=== PATIENT | male | born 1985 | race African-American/Black ===

== ENCOUNTER 2018-04-26 21:02 | Inpatient (IN) | payer OTHER ==
[2018-04-26 23:22] VITALS: BMI 26.4
--- NOTE | 2018-04-27 00:23 | HP ---
CIWA Score - CIWA Score Nausea/Vomitin Muscle Tremors: 5 Anxiety: 5 Agitation: 4-Moderately Restless Paroxysmal Sweats: No Perspiration Orientation: 3-Disoriented Date>2 days Tacttile Disturbances: 3-Moderate Itch/Numb/Burn Auditory Disturbances: 0-None Visual Disturbances: 2-Mild Sensitivity Headache: 0-None Present CIWA-Ar Total Score: 25 Admission ROS S - [facility] Chief Complaint: c/o withdrawal sx's. seeking detox from alcohol Allergies/Adverse Reactions: Allergies Allergy/AdvReac Type Severity Reaction Status Date / Time No Known Allergies Allergy Verified 02/05/18 10:33 History of Present Illness: 32 Y.O. MALE WITH LONG HX/O ALCOHOLISM HERE FOR DETOX WITH C/O WITHDRAWAL SX'S. CIWA 25. HE IS KNOWN TO THIS PROGRAM. LAST ADMISSION ON 02/05/2018. REFERRED BY [facility] . DENIES ANY SIGNIFICANT CLEAN TIME. REPORTS WITHDRAWAL SEIZURES LAST EPISODE 2 DAYS AGO. HE IS SUPPOSE TO BE TAKING KEPPRA BUT HAS NOT TAKEN IT IN 2 WEEKS. DOES NOT RECALL HIS DOSE HE ALSO REPORTS RECENT I AND D OF R HIP 2/2 ABCESS. SITE IS HEALING WITH RED GRANULATING TISSUES NO DRAINAGE. REPORTS VISUAL HALLUCINATION WHEN WITHDRAWING. DENIES SOB, C.P, PAST/PRESENT SI/ HI PMHX- HTN, HX/O PE LEFT LUNG PSYCH- DENIES Exam Limitations: No Limitations - Ebola screening Have you traveled outside of the country in the last 21 days: No (N) Have you had contact with anyone from an Ebola affected area: No Have you been sick,other than usual withdrawal symptoms: No Do you have a fever: No - Review of Systems Constitutional: Chills, Loss of Appetite, Malaise, Night Sweats, Changes in sleep EENT: reports: No Symptoms Reported Respiratory: reports: Shortness of Breath Cardiac: reports: No Symptoms Reported GI: reports: Diarrhea, Nausea, Poor Appetite, Poor Fluid Intake, Abdominal cramping : reports: No Symptoms Reported Musculoskeletal: reports: No Symptoms Reported Integumentary: reports: Flushing, Other (R HIP SX WOUND) Neuro: reports: Headache, Seizure ( 2 DAYS AGO R/T WITHDRAWAL), Tremors Endocrine: reports: No Symptoms Reported Hematology: reports: Blood Clots (HX/O PE) Psychiatric: reports: Anxious Other Systems: Reviewed and Negative Patient History - Patient Medical History Hx Anemia: No Hx Asthma: No Hx Chronic Obstructive Pulmonary Disease (COPD): No Hx Cancer: No Hx Cardiac Disorders: No Hx Congestive Heart Failure: No Hx Hypertension: Yes (NOT ON MEDICATION) Hx Hypercholesterolemia: No Hx Pacemaker: No HX Cerebrovascular Accident: No Hx Seizures: Yes (KEPPRA LAST TAKEN 2 WEEKS AGO) Hx Dementia: No Hx Diabetes: No Hx Gastrointestinal Disorders: No Hx Liver Disease: No Hx Genitourinary Disorders: No Hx Sexually Transmitted Disorders: No Hx Renal Disease (ESRD): No Hx Thyroid Disease: No Hx Human Immunodeficiency Virus (HIV): No Hx Hepatitis C: No Hx Depression: No Hx Suicide Attempt: No Hx Bipolar Disorder: No Hx Schizophrenia: No Other Medical History: DENIES - Patient Surgical History Past Surgical History: Yes Hx Neurologic Surgery: No Hx Cataract Extraction: No Hx Cardiac Surgery: No Hx Lung Surgery: No Hx Breast Surgery: No Hx Breast Biopsy: No Hx Abdominal Surgery: No Hx Appendectomy: No Hx Cholecystectomy: No Hx Genitourinary Surgery: No Hx Section: No Hx Orthopedic Surgery: Yes (LEFT ANKLE SX 2012) Anesthesia Reaction: No (unknown) - PPD History Previous Implant?: Yes Documented Results: Negative w/proof Implanted On Prior [facility] Admission?: Yes Date: 02/07/18 Results: 0MM PPD to be Administered?: No - Smoking Cessation Smoking history: Current every day smoker Have you smoked in the past 12 months: Yes Aproximately how many cigarettes per day: 10 Cigars Per Day: 0 Hx Chewing Tobacco Use: No Initiated information on smoking cessation: Yes 'Breaking Loose' booklet given: 04/27/18 - Substance & Tx. History Hx Alcohol Use: Yes Hx Substance Use: Yes Substance Use Type: Alcohol Hx Substance Use Treatment: Yes ([facility]) - Substances Abused VODKA Route: Oral Frequency: Daily Amount used: 1 LITER Age of first use: 13 Date of Last Use: 04/26/18 Family Disease History - Family Disease History Family Disease History: Other: Grandparent (HTN), Father (HX/O ALCOHOLISM) Admission Physical Exam [facility] - Vital Signs Vital Signs: Vital Signs - 24 hr 04/26/18 23:20 Temperature 97.9 F Pulse Rate 98 H Respiratory 18 Rate Blood Pressure 170/100 - Physical General Appearance: Yes: Appropriately Dressed, Moderate Distress, Tremorous, Irritable, Anxious HEENTM: Yes: EOMI, Normocephalic, Normal Voice, LICHA, Pharynx Normal, Other ( POOR DENTITION) Respiratory: Yes: Chest Non-Tender, Lungs Clear, Normal Breath Sounds, No Respiratory Distress, No Accessory Muscle Use Neck: Yes: No masses,lesions,Nodules, Supple, Trachea in good position Breast: Yes: Breast Exam Deferred Cardiology: Yes: Regular Rhythm, S1, S2, Tachycardia Abdominal: Yes: Non Tender, Soft Genitourinary: Yes: Other (NO C/O) Back: Yes: Normal Inspection Musculoskeletal: Yes: full range of Motion Extremities: Yes: Normal Range of Motion, Non-Tender, Tremors, Other 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: Yes: Alert, Motor Strength 5/5, Other (ANXIOUS) Integumentary: Yes: Warm, Rash (FUNGAL RASH TO GROIN) Lymphatic: Yes: Within Normal Limits - Diagnostic (1) At risk for dehydration due to poor fluid intake Current Visit: Yes Status: Acute (2) Tinea cruris Current Visit: Yes Status: Acute (3) Alcohol dependence with uncomplicated withdrawal Current Visit: No Status: Acute (4) Insomnia Current Visit: No Status: Acute Qualifiers: Insomnia type: unspecified Qualified Code(s): G47.00 - Insomnia, unspecified (5) Hypertension Current Visit: No Status: Chronic Qualifiers: Hypertension type: essential hypertension Qualified Code(s): I10 - Essential (primary) hypertension (6) Nicotine dependence Current Visit: No Status: Chronic Qualifiers: Nicotine product type: cigarettes Substance use status: uncomplicated Qualified Code(s): F17.210 - Nicotine dependence, cigarettes, uncomplicated (7) Depressed affect Current Visit: No Status: Suspected Cleared for Admission [facility] - Detox or Rehab [facility] Level of Care: Medically Managed Detox Regimen/Protocol: Librium Claeared for Rehab Admission: No [facility] Breath Alcohol Content Breath Alcohol Content: 0 Urine Drug Screen - Results Drug Screen Negative: No Urine Drug Screen Results: BZO-Benzodiazepines
[2018-04-27] MEDS ORDERED: MAGNESIUM CITRATE 300 ML BOTTLE PO PRN (00:36)
[2018-04-27] MEDS ORDERED: chlordiazePOXIDE HCL 25 MG CAPSULE PO PRN (00:36)
[2018-04-27] MEDS ORDERED: MAG HYDROX/AL HYDROX/SIMETH 30 ML UNIT-DOSE CUP PO PRN (00:36)
[2018-04-27] MEDS ORDERED: guaiFENesin/D-METHORPHAN HB 10 ML UNIT-DOSE CUPS PO PRN (00:36)
[2018-04-27] MEDS ORDERED: P-EPHED 60MG/TRIPROLIDI 2.5MG TABLET PO PRN (00:36)
[2018-04-27] MEDS ORDERED: MENTHOL/PHENOL 1 EACH UD MM PRN (00:36)
[2018-04-27] MEDS ORDERED: LOPERAMIDE HCL 2 MG CAPSULE PO PRN (00:36)
[2018-04-27] MEDS ORDERED: ACETAMINOPHEN 325 MG TABLET (FP) PO PRN (00:36)
[2018-04-27] MEDS ORDERED: MAGNESIUM HYDROX 2400MG/30ML ORAL SUSPENSION 30 ML CUP PO PRN (00:36)
[2018-04-27] MEDS ORDERED: IBUPROFEN 400 MG TABLET (FP) PO PRN (00:36)
[2018-04-27] MEDS: CLOTRIMAZOLE 1% CREAM 15 GM TUBE TP SCH ×3 (05:43→22:34)
[2018-04-27] MEDS: chlordiazePOXIDE HCL 25 MG CAPSULE PO SCH ×4 (05:44→22:34)
[2018-04-27] MEDS ORDERED: CLOTRIMAZOLE 1% CREAM 15 GM TUBE TP SCH ×2 (10:00)
[2018-04-27 10:16] LABS: HEMATOCRIT 31.1 % (35.4-49); HEMOGLOBIN 10.3 GM/dL (11.7-16.9); MCH 33.7 pg (25.7-33.7); MCHC 33.1 g/dl (32.0-35.9); MEAN CELL VOLUME 101.9 fl (80-96); MEAN PLT VOLUME 8.3 fl (7.5-11.1); PLATELET COUNT 353 K/MM3 (134-434); RBC 3.05 M/mm3 (4.00-5.60); WHITE BLOOD COUNT 14.4 K/mm3 (4.0-10.0)
[2018-04-27 10:33] LABS: CHLORIDE 101 mmol/L (98-107); POTASSIUM 3.9 mmol/L (3.5-5.1); SODIUM 139 mmol/L (136-145)
[2018-04-27] MEDS: PRENATAL VITAMINS W/ FOLIC ACID TABLET (FP) PO SCH (10:33)
--- NOTE | 2018-04-27 10:58 | PN ---
S CIWA - CIWA Score Nausea/Vomitin-No Nausea/No Vomiting Muscle Tremors: None Anxiety: 1-Mildly Anxious Agitation: 0-Normal Activity Paroxysmal Sweats: No Perspiration Orientation: 0-Oriented Tacttile Disturbances: 0-None Auditory Disturbances: 0-None Visual Disturbances: 0-None Headache: 3-Moderate CIWA-Ar Total Score: 4 BHS Progress Note (SOAP) Subjective: PATIENT C/O HEADACHE AND MILD ANXIETY. Objective: 04/27/18 10:56 Vital Signs Temperature 96.7 F L 04/27/18 09:26 Pulse Rate 82 04/27/18 09:26 Respiratory Rate 18 04/27/18 09:26 Blood Pressure 181/106 04/27/18 09:26 O2 Sat by Pulse Oximetry (%) Laboratory Tests 04/27/18 04/27/18 07:50 07:50 WBC 14.4 H RBC 3.05 L Hgb 10.3 L Hct 31.1 L D MCV 101.9 H MCH 33.7 MCHC 33.1 RDW 16.0 H Plt Count 353 D MPV 8.3 D Sodium 139 Potassium 3.9 Chloride 101 OBJ; ALERT AND ORIENTED SKIN WARM AND DRY CAR S1S2. DENIES CP, SOB AND DIZZINESS. RESP CTA BL REPEAT BP 148/92, HR 91. Assessment: 04/27/18 10:57 HEADACHE ELEVATED BP WITHDRAWAL SYNDROME Plan: CLONIDINE 0.1MG PO NOW CONTINUE DETOX PER PROTOCOL ELEVATED WBC WILL REPEAT IN AM
[2018-04-27] MEDS ORDERED: cloNIDine HCL 0.1 MG TABLET PO ONE (11:00)
[2018-04-27 11:05] LABS: ALBUMIN 3.6 g/dl (3.4-5.0); ALK PHOS 92 U/L (45-117); ANION GAP 12 MMOL/L (8-16); BILIRUBIN,TOTAL 0.3 mg/dL (0.2-1); BLOOD UREA NITROGEN 6 mg/dL (7-18); CALCIUM 8.7 mg/dL (8.5-10.1); CO2 26 mmol/L (21-32); CREATININE 0.6 mg/dL (0.55-1.3); GLUCOSE,RANDOM 80 mg/dL (74-106); SGOT/AST 49 U/L (15-37); SGPT/ALT 30 U/L (13-61); TOT PROT 6.9 g/dl (6.4-8.2)
[2018-04-27] MEDS ORDERED: FLU VACCINE QUAD 60 MCG/0.5 ML (MDV 18-19) IM ONE (12:00)
--- NOTE | 2018-04-27 13:45 | CONSULT ---
[facility] Psychiatric Consult - Data Date of interview: 04/27/18 Admission source: [facility] Identifying data: Readmission to [facility] for this 32 y/o AA male self- referred for detoxification treatment (alcohol dependence).Adamitted to [address] [place] [address].Patient is single without dependents,domiciled,unemployed and supported by relatives. Substance Abuse History: Discussed in this interview.Mr Marinelli confirms a long- standing history of alcohol dependence.Details in current [facility] report : Smoking history: Current every day smoker. Have you smoked in the past 12 months: Yes. Aproximately how many cigarettes per day: 10. Cigars Per Day: 0. Hx Chewing Tobacco Use: No. Initiated information on smoking cessation: Yes. 'Breaking Loose' booklet given: 04/27/18. - Substance & Tx. History. Hx Alcohol Use: Yes. Hx Substance Use: Yes. Substance Use Type: Alcohol. Hx Substance Use Treatment: Yes ([facility]). - Substances Abused. VODKA. Route: Oral. Frequency : Daily. Amount used: 1 LITER. Age of first use: 13. Date of Last Use: Medical History: Hypertension,seizures,tinea cruris,antecedent of pulmonary embolism,recent surgical treatment for abcess located on right hip and history of orthosurgery (fracture of left ankle) years ago. Psychiatric History: Patient denies. Physical/Sexual Abuse/Trauma History: No reported history of abuse. Additional Comment: Urine Drug Screen Results: BZO-Benzodiazepines.Noted. Mental Status Exam - Mental Status Exam Alert and Oriented to: Time, Place, Person Cognitive Function: Good Patient Appearance: Unkempt (obese), Disheveled Mood: Withdrawn, Irritable Affect: Mood Congruent, Constricted Patient Behavior: Fatigued, Cooperative Speech Pattern: Clear Voice Loudness: Normal Thought Process: Goal Oriented Thought Disorder: Not Present Hallucinations: Denies Suicidal Ideation: Denies Homicidal Ideation: Denies Insight/Judgement: Poor Sleep: Poorly, Difficulty falling asleep Appetite: Good Muscle strength/Tone: Normal Gait/Station: Normal (observed ambulating prior to the interview ; now in bed) Psychiatric Findings - Problem List ([place] 1, 2,3) (1) Alcohol dependence with uncomplicated withdrawal Current Visit: Yes Status: Acute (2) Nicotine dependence Current Visit: Yes Status: Acute Qualifiers: Nicotine product type: cigarettes Substance use status: uncomplicated Qualified Code(s): F17.210 - Nicotine dependence, cigarettes, uncomplicated (3) Insomnia Current Visit: Yes Status: Acute Qualifiers: Insomnia type: unspecified Qualified Code(s): G47.00 - Insomnia, unspecified - Initial Treatment Plan Initial Treatment Plan: Psychoeducation.Sleep hygiene.Detoxification.Groups.AA meetings.Support.Ambien 10 mg po hs prn.Patient is informed of risk of parasomnias.Agrees to careplan.Observation.
[2018-04-27] MEDS ORDERED: BACITRACIN 0.9 GM PACKET TP ONE (15:05)
--- NOTE | 2018-04-27 16:45 | EKG ---
Test Reason : Blood Pressure : / mmHG Vent. Rate : 093 BPM Atrial Rate : 093 BPM P-R Int : 164 ms QRS Dur : 082 ms QT Int : 348 ms P-R-T Axes : 047 020 024 degrees QTc Int : 432 ms NORMAL SINUS RHYTHM SEPTAL INFARCT (CITED ON OR BEFORE 05-FEB-2018) ABNORMAL ECG WHEN COMPARED WITH ECG OF 05-FEB-2018 12:12, NO SIGNIFICANT CHANGE WAS FOUND Confirmed by Tripp Paulson ([id number]) on 04/27/2018 4:44:49 PM Referred By: Confirmed By:Tripp Paulson
[2018-04-27 19:56] LABS: URINE APPEARANCE CLEAR; URINE BILIRUBIN NEGATIVE (<2.0 mg/dL); URINE COLOR STRAW; URINE GLUCOSE (UA) NEGATIVE (NEGATIVE); URINE KETONE NEGATIVE (NEGATIVE); URINE LEUK ESTERASE NEGATIVE (NEGATIVE); URINE NITRITE NEGATIVE (NEGATIVE); URINE PROTEIN NEGATIVE (NEGATIVE); URINE UROBILINOGEN NEGATIVE mg/dL (0.2-1.0)
[2018-04-27] MEDS ORDERED: MELATONIN 5 MG TABLETS PO PRN (22:00)
[2018-04-27] MEDS: THIAMINE HCL 100 MG TABLET (FP) PO SCH (22:34)
[2018-04-27] MEDS: ZOLPIDEM TARTRATE 10 MG TABLET (PARK CARE ONLY) PO PRN (22:35)
[2018-04-28] MEDS: chlordiazePOXIDE HCL 25 MG CAPSULE PO SCH ×4 (05:33→22:35)
[2018-04-28] MEDS: PRENATAL VITAMINS W/ FOLIC ACID TABLET (FP) PO SCH (10:46)
[2018-04-28] MEDS: CLOTRIMAZOLE 1% CREAM 15 GM TUBE TP SCH ×2 (10:47→22:35)
--- NOTE | 2018-04-28 11:40 | PN ---
S CIWA - CIWA Score Nausea/Vomitin-Mild Nausea/No Vomiting Muscle Tremors: 2 Anxiety: 1-Mildly Anxious Agitation: 0-Normal Activity Paroxysmal Sweats: No Perspiration Orientation: 0-Oriented Tacttile Disturbances: 0-None Auditory Disturbances: 0-None Visual Disturbances: 0-None Headache: 0-None Present CIWA-Ar Total Score: 4 BHS Progress Note (SOAP) Subjective: Patient c/o mild anxiety, tremors and nausea. Objective: 04/28/18 11:38 Vital Signs Temperature 97.0 F L 04/28/18 09:22 Pulse Rate 82 04/28/18 09:22 Respiratory Rate 18 04/28/18 09:22 Blood Pressure 127/79 04/28/18 09:22 O2 Sat by Pulse Oximetry (%) Laboratory Tests 04/27/18 04/27/18 04/27/18 07:50 07:50 07:50 WBC 14.4 H RBC 3.05 L Hgb 10.3 L Hct 31.1 L D MCV 101.9 H MCH 33.7 MCHC 33.1 RDW 16.0 H Plt Count 353 D MPV 8.3 D Sodium 139 Potassium 3.9 Chloride 101 Carbon Dioxide 26 Anion Gap 12 BUN 6 L Creatinine 0.6 Creat Clearance w eGFR > 60 Random Glucose 80 Calcium 8.7 Total Bilirubin 0.3 AST 49 H ALT 30 Alkaline Phosphatase 92 Total Protein 6.9 Albumin 3.6 Urine Color Urine Appearance Urine pH Ur Specific [place] Urine Protein Urine Glucose (UA) Urine Ketones Urine Blood Urine Nitrite Urine Bilirubin Urine Urobilinogen Ur Leukocyte Esterase RPR Titer Nonreactive 04/27/18 17:30 WBC RBC Hgb Hct MCV MCH MCHC RDW Plt Count MPV Sodium Potassium Chloride Carbon Dioxide Anion Gap BUN Creatinine Creat Clearance w eGFR Random Glucose Calcium Total Bilirubin AST ALT Alkaline Phosphatase Total Protein Albumin Urine Color Straw Urine Appearance Clear Urine pH 8.0 D Ur Specific [place] 1.005 Urine Protein Negative Urine Glucose (UA) Negative Urine Ketones Negative Urine Blood Negative Urine Nitrite Negative Urine Bilirubin Negative Urine Urobilinogen Negative Ur Leukocyte Esterase Negative RPR Titer alert and oriented skin warm and dry car s1s2 resp cta bl ext +mild tremors Assessment: 04/28/18 11:39 withdrawal syndrome Plan: encourage oral fluids continue detox as per protocol
[2018-04-28] MEDS: THIAMINE HCL 100 MG TABLET (FP) PO SCH (22:35)
[2018-04-28] MEDS: ZOLPIDEM TARTRATE 10 MG TABLET (PARK CARE ONLY) PO PRN (22:35)
[2018-04-29] MEDS: chlordiazePOXIDE 5 MG CAPSULE PO SCH ×4 (05:21→23:01)
[2018-04-29] MEDS: PRENATAL VITAMINS W/ FOLIC ACID TABLET (FP) PO SCH (10:34)
[2018-04-29] MEDS: CLOTRIMAZOLE 1% CREAM 15 GM TUBE TP SCH ×2 (10:35→23:00)
--- NOTE | 2018-04-29 13:47 | PN ---
[facility] Progress Note Note: Patient presents with irritability. Denies headache, chills, N/V/D. Vital Signs Temperature 97.1 F L 04/29/18 09:20 Pulse Rate 75 04/29/18 09:20 Respiratory Rate 18 04/29/18 09:20 Blood Pressure 150/95 04/29/18 09:20 O2 Sat by Pulse Oximetry (%) Laboratory Tests 04/27/18 04/27/18 04/27/18 07:50 07:50 07:50 WBC 14.4 H RBC 3.05 L Hgb 10.3 L Hct 31.1 L D MCV 101.9 H MCH 33.7 MCHC 33.1 RDW 16.0 H Plt Count 353 D MPV 8.3 D Sodium 139 Potassium 3.9 Chloride 101 Carbon Dioxide 26 Anion Gap 12 BUN 6 L Creatinine 0.6 Creat Clearance w eGFR > 60 Random Glucose 80 Calcium 8.7 Total Bilirubin 0.3 AST 49 H ALT 30 Alkaline Phosphatase 92 Total Protein 6.9 Albumin 3.6 Urine Color Urine Appearance Urine pH Ur Specific [place] Urine Protein Urine Glucose (UA) Urine Ketones Urine Blood Urine Nitrite Urine Bilirubin Urine Urobilinogen Ur Leukocyte Esterase RPR Titer Nonreactive 04/27/18 17:30 WBC RBC Hgb Hct MCV MCH MCHC RDW Plt Count MPV Sodium Potassium Chloride Carbon Dioxide Anion Gap BUN Creatinine Creat Clearance w eGFR Random Glucose Calcium Total Bilirubin AST ALT Alkaline Phosphatase Total Protein Albumin Urine Color Straw Urine Appearance Clear Urine pH 8.0 D Ur Specific [place] 1.005 Urine Protein Negative Urine Glucose (UA) Negative Urine Ketones Negative Urine Blood Negative Urine Nitrite Negative Urine Bilirubin Negative Urine Urobilinogen Negative Ur Leukocyte Esterase Negative RPR Titer PE: alert and oriented x 3 skin warm and dry car s1s2 resp cta bl psych irritable at times. a/p: withdrawal syndrome patient tolerating detox well continue detox as per protocol patient keppra level pending patient reports non-compliance with keppra follow up level when available.
[2018-04-29] MEDS: THIAMINE HCL 100 MG TABLET (FP) PO SCH (23:00)
[2018-04-30 06:12] VITALS: BP 135/88; PULSE 86; TEMP 97
[2018-04-30] MEDS: chlordiazePOXIDE HCL 10 MG CAPSULE PO SCH ×2 (07:37→10:28)
[2018-04-30] MEDS: CLOTRIMAZOLE 1% CREAM 15 GM TUBE TP SCH (10:28)
[2018-04-30] MEDS: PRENATAL VITAMINS W/ FOLIC ACID TABLET (FP) PO SCH (10:28)
--- NOTE | 2018-04-30 11:50 | PN ---
[facility] Progress Note (SOAP) Subjective: DETOX COMPLETED. ALERT O X 3. NAD. TOFOLLOW UP WITH REHAB AT [facility] ER PLANNED. Objective: 04/30/18 11:50 Vital Signs 04/30/18 06:12 Temperature 97 F L Pulse Rate 86 Respiratory 18 Rate Blood Pressure 135/88 Laboratory Tests 04/27/18 04/27/18 04/27/18 07:50 07:50 07:50 WBC 14.4 H RBC 3.05 L Hgb 10.3 L Hct 31.1 L D MCV 101.9 H MCH 33.7 MCHC 33.1 RDW 16.0 H Plt Count 353 D MPV 8.3 D Sodium 139 Potassium 3.9 Chloride 101 Carbon Dioxide 26 Anion Gap 12 BUN 6 L Creatinine 0.6 Creat Clearance w eGFR > 60 Random Glucose 80 Calcium 8.7 Total Bilirubin 0.3 AST 49 H ALT 30 Alkaline Phosphatase 92 Total Protein 6.9 Albumin 3.6 Urine Color Urine Appearance Urine pH Ur Specific [place] Urine Protein Urine Glucose (UA) Urine Ketones Urine Blood Urine Nitrite Urine Bilirubin Urine Urobilinogen Ur Leukocyte Esterase Levetiracetam 2.5 L RPR Titer 04/27/18 04/27/18 07:50 17:30 WBC RBC Hgb Hct MCV MCH MCHC RDW Plt Count MPV Sodium Potassium Chloride Carbon Dioxide Anion Gap BUN Creatinine Creat Clearance w eGFR Random Glucose Calcium Total Bilirubin AST ALT Alkaline Phosphatase Total Protein Albumin Urine Color Straw Urine Appearance Clear Urine pH 8.0 D Ur Specific [place] 1.005 Urine Protein Negative Urine Glucose (UA) Negative Urine Ketones Negative Urine Blood Negative Urine Nitrite Negative Urine Bilirubin Negative Urine Urobilinogen Negative Ur Leukocyte Esterase Negative Levetiracetam RPR Titer Nonreactive Assessment: 04/30/18 11:50 MEDICALLY STABLE Plan: D/C PT TODAY. FOLLOW UP WITH REHAB
--- NOTE | 2018-04-30 11:53 | DS ---
[facility] Detox Discharge Summary Admission Date: 04/26/18 Discharge Date: 04/30/18 - History Present History: Alcohol Dependence Additional Comments: DETOX COMPLETED. PT REPORTS PRIMARY CARE AT [facility] AND HAS OWN MED AT HOME. Pertinent Past History: PLEASE SEE DX BELOW - Physical Exam Results Vital Signs: Vital Signs Temperature 97 F L 04/30/18 06:12 Pulse Rate 86 04/30/18 06:12 Respiratory Rate 18 04/30/18 06:12 Blood Pressure 135/88 04/30/18 06:12 O2 Sat by Pulse Oximetry (%) Pertinent Admission Physical Exam Findings: WITHDRAWAL SX Laboratory Tests 04/27/18 04/27/18 04/27/18 07:50 07:50 07:50 WBC 14.4 H RBC 3.05 L Hgb 10.3 L Hct 31.1 L D MCV 101.9 H MCH 33.7 MCHC 33.1 RDW 16.0 H Plt Count 353 D MPV 8.3 D Sodium 139 Potassium 3.9 Chloride 101 Carbon Dioxide 26 Anion Gap 12 BUN 6 L Creatinine 0.6 Creat Clearance w eGFR > 60 Random Glucose 80 Calcium 8.7 Total Bilirubin 0.3 AST 49 H ALT 30 Alkaline Phosphatase 92 Total Protein 6.9 Albumin 3.6 Urine Color Urine Appearance Urine pH Ur Specific [place] Urine Protein Urine Glucose (UA) Urine Ketones Urine Blood Urine Nitrite Urine Bilirubin Urine Urobilinogen Ur Leukocyte Esterase Levetiracetam 2.5 L RPR Titer 04/27/18 04/27/18 07:50 17:30 WBC RBC Hgb Hct MCV MCH MCHC RDW Plt Count MPV Sodium Potassium Chloride Carbon Dioxide Anion Gap BUN Creatinine Creat Clearance w eGFR Random Glucose Calcium Total Bilirubin AST ALT Alkaline Phosphatase Total Protein Albumin Urine Color Straw Urine Appearance Clear Urine pH 8.0 D Ur Specific [place] 1.005 Urine Protein Negative Urine Glucose (UA) Negative Urine Ketones Negative Urine Blood Negative Urine Nitrite Negative Urine Bilirubin Negative Urine Urobilinogen Negative Ur Leukocyte Esterase Negative Levetiracetam RPR Titer Nonreactive - Treatment Hospital Course: Detox Protocol Followed, Detoxed Safely, Responded well, Discharged Condition Good, Rehab Referral Accepted Patient has Accepted a Rehab Referral to: [facility] - Medication Discharge Medications: Ambulatory Orders levETIRAcetam [Keppra -] 500 mg PO BID 04/27/18 - Diagnosis (1) Alcohol dependence with uncomplicated withdrawal Status: Acute (2) Nicotine dependence Status: Acute Qualifiers: Nicotine product type: cigarettes Substance use status: in withdrawal Qualified Code(s): F17.213 - Nicotine dependence, cigarettes, with withdrawal (3) Tinea cruris Status: Acute (4) Hypertension Status: Chronic Qualifiers: Hypertension type: essential hypertension Qualified Code(s): I10 - Essential (primary) hypertension (5) Seizure disorder Status: Chronic - AMA Did Patient Leave Against Medical Advice: No
== END 2018-04-30 10:40 | disposition home or self-care (01) | DRG 775 ==
LOC: YASAS 21:02 → Y3N 23:52
PROC: HZ2ZZZZ Detoxification Services for Substance Abuse Treatment (ICD-10-PCS; principal; 2018-04-26)
DX: F10.230 Alcohol dependence with withdrawal, uncomplicated (principal); F17.210 Nicotine dependence, cigarettes, uncomplicated; G47.00 Insomnia, unspecified; G40.909 Epilepsy, unspecified, not intractable, without status epilepticus; I10 Essential (primary) hypertension; B35.6 Tinea cruris; R45.89 Other symptoms and signs involving emotional state; Z91.89 Other specified personal risk factors, not elsewhere classified; Z59.0 Homelessness; Z86.711 Personal history of pulmonary embolism
CPT/HCPCS: 36415; 80053; 81003; 85027; 86593; 93005; 93010; J0735

== ENCOUNTER 2019-03-31 10:06 | Inpatient (IN) | payer OTHER ==
[2019-03-31 11:42] VITALS: BMI 26.2
--- NOTE | 2019-03-31 13:51 | HP ---
CIWA Score Nausea/Vomitin-Mild Nausea/No Vomiting Muscle Tremors: 4-Moderate,w/Arms Extend Anxiety: 3 Agitation: 3 Paroxysmal Sweats: 1-Minimal Palms Moist Orientation: 0-Oriented Tacttile Disturbances: 0-None Auditory Disturbances: 2-Mild Harshness/Frighten Visual Disturbances: 4-Moderate Hallucinations Headache: 0-None Present CIWA-Ar Total Score: 18 - Admission Criteria OASAS Guidelines: Admission for Medically Managed Detox: Requires at least one of the followin. CIWA greater than 12 2. Seizures within the past 24 hours 3. Delirium tremens within the past 24 hours 4. Hallucinations within the past 24 hours 5. Acute intervention needed for co occurring medical disorder 6. Acute intervention needed for co occurring psychiatric disorder 7. Severe withdrawal that cannot be handled at a lower level of care (continued vomiting, continued diarrhea, abnormal vital signs) requiring intravenous medication and/or fluids 8. Patient presents the following: CIWA greater than 12 Admission Criteria Met: Admission criteria met Admission ROS [facility] - HPI Chief Complaint: I WANNA QUIT Allergies/Adverse Reactions: Allergies Allergy/AdvReac Type Severity Reaction Status Date / Time No Known Allergies Allergy Verified 03/31/19 11:37 History of Present Illness: 33 YO ETOH USE BEGAN AGE 14 HAS HAD PERIODS OF ABSTINENCE DURING INCARCERATION SP DETOX 1 YEAR STEADY PATTERN DRINKING 1 L VODKA DAILY CONSEQUENCES: "BEING BROKE AND IN THE STREEETS" HAS BEEN IN OUTPT WHICH HELPED - Ebola screening Have you traveled outside of the country in the last 21 days: No (N) Have you had contact with anyone from an Ebola affected area: No Do you have a fever: No - Review of Systems Constitutional: Changes in sleep EENT: reports: No Symptoms Reported Respiratory: reports: No Symptoms reported Cardiac: reports: No Symptoms Reported GI: reports: Abdominal cramping : reports: No Symptoms Reported Musculoskeletal: reports: No Symptoms Reported Integumentary: reports: No Symptoms Reported Neuro: reports: Seizure (HISTORY) Endocrine: reports: No Symptoms Reported Hematology: reports: No Symptoms Reported Psychiatric: reports: Mood/Affect Appropiate, Orientated x3, Anxious Patient History - Patient Medical History Hx Anemia: No Hx Asthma: No Hx Chronic Obstructive Pulmonary Disease (COPD): No Hx Cancer: No Hx Cardiac Disorders: No Hx Congestive Heart Failure: No Hx Hypertension: Yes (NOT ON MEDICATION) Hx Hypercholesterolemia: No Hx Pacemaker: No HX Cerebrovascular Accident: No Hx Seizures: Yes (KEPPRA LAST TAKEN 3 Y AGO) Hx Dementia: No Hx Diabetes: No Hx Gastrointestinal Disorders: No Hx Liver Disease: No Hx Genitourinary Disorders: No Hx Sexually Transmitted Disorders: No Hx Renal Disease (ESRD): No Hx Thyroid Disease: No Hx Human Immunodeficiency Virus (HIV): No Hx Hepatitis C: No Hx Depression: No Hx Suicide Attempt: No Hx Bipolar Disorder: No Hx Schizophrenia: No - Patient Surgical History Past Surgical History: Yes Hx Neurologic Surgery: No Hx Cataract Extraction: No Hx Cardiac Surgery: No Hx Lung Surgery: No Hx Breast Surgery: No Hx Breast Biopsy: No Hx Abdominal Surgery: No Hx Appendectomy: No Hx Cholecystectomy: No Hx Genitourinary Surgery: No Hx Section: No Hx Orthopedic Surgery: Yes (LEFT ANKLE SX 2012) Anesthesia Reaction: No (unknown) - PPD History Date: 02/07/18 Results: 0MM - Smoking Cessation Smoking history: Current every day smoker Have you smoked in the past 12 months: Yes Aproximately how many cigarettes per day: 10 Cigars Per Day: 0 Hx Chewing Tobacco Use: No Initiated information on smoking cessation: Yes 'Breaking Loose' booklet given: 03/31/19 - Substances abused Alcohol Substance route: Oral Frequency: Daily Amount used: 1 liter of vodka Age of first use: 14 Date of last use: 03/30/19 Marijuana/Hashish Substance route: Smoking Frequency: 1-3 times last 30 days Amount used: 1 blunt Age of first use: 9 Date of last use: 03/17/19 Family Disease History - Family Disease History Family Disease History: Other: Grandparent (HTN), Father (HX/O ALCOHOLISM) Admission Physical Exam [facility] - Vital Signs Vital Signs: Vital Signs - 24 hr 03/31/19 11:38 Temperature 98.0 F Pulse Rate 75 Respiratory 18 Rate Blood Pressure 161/98 - Physical General Appearance: Yes: Irritable, Anxious HEENTM: Yes: EOMI (DRY LIPS), Other (dry lips poor dentition) Respiratory: Yes: Lungs Clear, Normal Breath Sounds Neck: Yes: Within Normal Limits Breast: Yes: Breast Exam Deferred Cardiology: Yes: Within Normal Limits, Regular Rhythm, Regular Rate, S1, S2 Abdominal: Yes: Normal Bowel Sounds, Non Tender Genitourinary: Yes: Within Normal Limits Back: Yes: Within Normal Limits Musculoskeletal: Yes: full range of Motion, Gait Steady, Pelvis Stable Extremities: Yes: Within Normal Limits, Normal Capillary Refill, Normal Inspection 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: Yes: Fully Oriented, Alert Integumentary: Yes: Within Normal Limits, Normal Color - Diagnostic (1) Alcohol dependence with uncomplicated withdrawal Current Visit: Yes Status: Acute (2) At risk for dehydration due to poor fluid intake Current Visit: Yes Status: Acute (3) Chronic alcoholism Current Visit: Yes Status: Acute (4) Nicotine dependence Current Visit: Yes Status: Acute Qualifiers: Nicotine product type: cigarettes Substance use status: in withdrawal Qualified Code(s): F17.213 - Nicotine dependence, cigarettes, with withdrawal (5) Seizure disorder Current Visit: Yes Status: Acute (6) Depressed affect Current Visit: Yes Status: Acute Cleared for Admission S - Detox or Rehab [facility] Level of Care: Medically Managed Breathalyzer - Breathalyzer Breathalyzer: 0 Urine Drug Screen - Test Device Lot number: [id number] Expiration date: 01/07/21 - Control Is test valid?: Yes - Results Drug screen NEGATIVE: No Urine drug screen results: BZO-Benzodiazepines Inpatient Rehab Admission - Rehab Decision to Admit Inpatient rehab admission?: No
[2019-03-31] MEDS ORDERED: IBUPROFEN 400 MG TABLET (FP) PO PRN (13:58)
[2019-03-31] MEDS ORDERED: MAGNESIUM HYDROX 2400MG/30ML ORAL SUSPENSION 30 ML CUP PO PRN (13:58)
[2019-03-31] MEDS ORDERED: hydrOXYzine PAMOATE 25 MG CAPSULE (FP) PO PRN (13:58)
[2019-03-31] MEDS ORDERED: MENTHOL/PHENOL 1 EACH UD MM PRN (13:58)
[2019-03-31] MEDS ORDERED: METHOCARBAMOL 500 MG TABLET PO PRN (13:58)
[2019-03-31] MEDS ORDERED: MAG HYDROX/AL HYDROX/SIMETH 30 ML UNIT-DOSE CUP PO PRN (13:58)
[2019-03-31] MEDS ORDERED: MAGNESIUM CITRATE 300 ML BOTTLE PO PRN (13:58)
[2019-03-31] MEDS ORDERED: chlordiazePOXIDE HCL 25 MG CAPSULE PO PRN (13:58)
[2019-03-31] MEDS ORDERED: ACETAMINOPHEN 325 MG TABLET (FP) PO PRN ×2 (13:58)
[2019-03-31] MEDS ORDERED: BISMUTH SUBSALICYLATE 262 MG/15 ML BTL PO PRN (13:58)
[2019-03-31 17:25] LABS: HEMATOCRIT 37.3 % (35.4-49); HEMOGLOBIN 12.6 GM/dL (11.7-16.9); MCH 34.8 pg (25.7-33.7); MCHC 33.7 g/dl (32.0-35.9); MEAN CELL VOLUME 103.3 fl (80-96); MEAN PLT VOLUME 9.7 fl (7.5-11.1); PLATELET COUNT 255 K/MM3 (134-434); RBC 3.61 M/mm3 (4.00-5.60); WHITE BLOOD COUNT 7.2 K/mm3 (4.0-10.0)
[2019-03-31 17:43] LABS: ALBUMIN 4.4 g/dl (3.4-5.0); BILIRUBIN,TOTAL 1.3 mg/dL (0.2-1); BLOOD UREA NITROGEN 7.6 mg/dL (7-18); CALCIUM 9.4 mg/dL (8.5-10.1); CREATININE 0.6 mg/dL (0.55-1.3); POTASSIUM 3.6 mmol/L (3.5-5.1); TOT PROT 8.4 g/dl (6.4-8.2)
[2019-03-31] MEDS: chlordiazePOXIDE HCL 25 MG CAPSULE PO SCH ×2 (17:54→22:16)
[2019-03-31] MEDS: MELATONIN 5 MG TABLETS PO PRN (22:15)
[2019-03-31] MEDS: THIAMINE HCL 100 MG TABLET (FP) PO SCH (22:15)
[2019-04-01] MEDS: chlordiazePOXIDE HCL 25 MG CAPSULE PO SCH ×4 (05:43→22:21)
[2019-04-01] MEDS: PRENATAL VITAMINS W/ FOLIC ACID TABLET (FP) PO SCH (10:32)
--- NOTE | 2019-04-01 12:29 | PN ---
S CIWA - CIWA Score Nausea/Vomitin-No Nausea/No Vomiting Muscle Tremors: 3 Anxiety: 3 Agitation: 3 Paroxysmal Sweats: 3 Orientation: 0-Oriented Tacttile Disturbances: 0-None Auditory Disturbances: 0-None Visual Disturbances: 0-None Headache: 0-None Present CIWA-Ar Total Score: 12 BHS Progress Note (SOAP) Subjective: sweats shakes chills interrupted sleep Objective: 04/01/19 13:11 Vital Signs Temperature 98.9 F 04/01/19 13:09 Pulse Rate 66 04/01/19 13:09 Respiratory Rate 16 04/01/19 13:09 Blood Pressure 135/73 04/01/19 13:09 O2 Sat by Pulse Oximetry (%) Laboratory Tests 03/31/19 03/31/19 03/31/19 14:15 14:15 14:15 WBC 7.2 RBC 3.61 L Hgb 12.6 Hct 37.3 D MCV 103.3 H MCH 34.8 H MCHC 33.7 RDW 15.0 Plt Count 255 D MPV 9.7 D Sodium 135 L Potassium 3.6 Chloride 100 Carbon Dioxide 25 Anion Gap 10 BUN 7.6 Creatinine 0.6 Est GFR (CKD-EPI)AfAm 152.04 Est GFR (CKD-EPI)NonAf 131.18 Random Glucose 107 H Calcium 9.4 Total Bilirubin 1.3 H AST 33 ALT 21 Alkaline Phosphatase 102 Total Protein 8.4 H Albumin 4.4 RPR Titer Nonreactive labs noted aaox3 ambulating no acute distress Assessment: 04/01/19 13:11 withdrawal sx Plan: continue detox increase fluids
[2019-04-01] MEDS: THIAMINE HCL 100 MG TABLET (FP) PO SCH (22:21)
[2019-04-01] MEDS: MELATONIN 5 MG TABLETS PO PRN (22:21)
[2019-04-02] MEDS: chlordiazePOXIDE HCL 25 MG CAPSULE PO SCH ×4 (05:31→22:22)
[2019-04-02] MEDS: PRENATAL VITAMINS W/ FOLIC ACID TABLET (FP) PO SCH (10:34)
--- NOTE | 2019-04-02 11:50 | PN ---
S CIWA - CIWA Score Nausea/Vomitin-No Nausea/No Vomiting Muscle Tremors: 2 Anxiety: 3 Agitation: 0-Normal Activity Paroxysmal Sweats: 3 Orientation: 0-Oriented Tacttile Disturbances: 0-None Auditory Disturbances: 0-None Visual Disturbances: 0-None Headache: 2-Mild CIWA-Ar Total Score: 10 BHS Progress Note (SOAP) Subjective: c/o muscle aches, sweats, headache, and anxiety. Objective: 04/02/19 11:49 Vital Signs 04/02/19 04/02/19 06:00 09:58 Temperature 97.5 F L 97.5 F L Pulse Rate 77 66 Respiratory 18 18 Rate Blood Pressure 133/72 158/96 Assessment: 04/02/19 11:49 AOX3, in no acute respiratory distress. Full ROM, ambulating in the unit. Withdrawal symptoms. Plan: continue detox.
[2019-04-02] MEDS: MELATONIN 5 MG TABLETS PO PRN (22:22)
[2019-04-02] MEDS: THIAMINE HCL 100 MG TABLET (FP) PO SCH (22:22)
[2019-04-03] MEDS ORDERED: chlordiazePOXIDE HCL 10 MG CAPSULE PO PRN
[2019-04-03] MEDS: chlordiazePOXIDE HCL 10 MG CAPSULE PO SCH ×4 (05:48→23:18)
[2019-04-03] MEDS: PRENATAL VITAMINS W/ FOLIC ACID TABLET (FP) PO SCH (10:33)
--- NOTE | 2019-04-03 16:20 | PN ---
S CIWA - CIWA Score Nausea/Vomitin-No Nausea/No Vomiting Muscle Tremors: None Anxiety: 3 Agitation: 3 Paroxysmal Sweats: 2 Orientation: 0-Oriented Tacttile Disturbances: 0-None Auditory Disturbances: 0-None Visual Disturbances: 0-None Headache: 0-None Present CIWA-Ar Total Score: 8 BHS Progress Note (SOAP) Subjective: Sweating, tremor, hallucinating (seeing lines, stated this happens whenever he is withdrawing and that he has no mental health problems and doesn't need to see Psychiatrist), nausea, interrupted sleep. Objective: 04/03/19 16:18 Last Vital Signs Temp Pulse Resp BP Pulse Ox 98.1 F 71 18 146/89 04/03/19 09:40 04/03/19 09:40 04/03/19 09:40 04/03/19 09:40 Elevated b/p 146/89 (denies htn) Laboratory Tests 03/31/19 03/31/19 03/31/19 14:15 14:15 14:15 WBC 7.2 RBC 3.61 L Hgb 12.6 Hct 37.3 D MCV 103.3 H MCH 34.8 H MCHC 33.7 RDW 15.0 Plt Count 255 D MPV 9.7 D Sodium 135 L Potassium 3.6 Chloride 100 Carbon Dioxide 25 Anion Gap 10 BUN 7.6 Creatinine 0.6 Est GFR (CKD-EPI)AfAm 152.04 Est GFR (CKD-EPI)NonAf 131.18 Random Glucose 107 H Calcium 9.4 Total Bilirubin 1.3 H AST 33 ALT 21 Alkaline Phosphatase 102 Total Protein 8.4 H Albumin 4.4 RPR Titer Nonreactive Labs reviewed: total bilirubin 1.3 (elevated) Assessment: 04/03/19 16:20 Withdrawal sxs Noted with elevated b/p and elevated total bilirubin Plan: Continue detox Encouraged PO water intake Elevated b/p: most likely r/t withdrawal, start clonidine prn Elevated total bilirubin: most likely r/t alcoholism, repeat total bilirubin level
[2019-04-03] MEDS ORDERED: cloNIDine HCL 0.1 MG TABLET PO PRN (16:22)
[2019-04-03] MEDS: THIAMINE HCL 100 MG TABLET (FP) PO SCH (23:18)
[2019-04-04] MEDS: chlordiazePOXIDE HCL 10 MG CAPSULE PO SCH ×2 (06:08→17:03)
[2019-04-04] MEDS: PRENATAL VITAMINS W/ FOLIC ACID TABLET (FP) PO SCH (10:55)
--- NOTE | 2019-04-04 11:19 | PN ---
S CIWA - CIWA Score Nausea/Vomitin-No Nausea/No Vomiting Muscle Tremors: 2 Anxiety: 1-Mildly Anxious Agitation: 1-Slight > Activity Paroxysmal Sweats: No Perspiration Orientation: 0-Oriented Tacttile Disturbances: 0-None Auditory Disturbances: 0-None Visual Disturbances: 0-None Headache: 0-None Present CIWA-Ar Total Score: 4 BHS Progress Note (SOAP) Subjective: im feeling fine little anxiety Objective: 04/04/19 11:18 Vital Signs Temperature 97.7 F 04/04/19 09:32 Pulse Rate 90 04/04/19 09:32 Respiratory Rate 18 04/04/19 09:32 Blood Pressure 136/85 04/04/19 09:32 O2 Sat by Pulse Oximetry (%) aaox3 ambulating no acute distress Assessment: 04/04/19 11:18 mild withdrawals Plan: continue detox increase fluids d/c in am
[2019-04-04] MEDS: THIAMINE HCL 100 MG TABLET (FP) PO SCH (21:21)
[2019-04-05] MEDS ORDERED: chlordiazePOXIDE HCL 10 MG CAPSULE PO ONE (05:00)
[2019-04-05 07:57] VITALS: BP 155/96; PULSE 69; TEMP 98.1
--- NOTE | 2019-04-05 10:02 | DS ---
[facility] Detox Discharge Summary Admission Date: 03/31/19 Discharge Date: 04/05/19 - History Present History: Alcohol Dependence - Physical Exam Results Vital Signs: Vital Signs Temperature 98.1 F 04/05/19 07:57 Pulse Rate 69 04/05/19 07:57 Respiratory Rate 18 04/05/19 07:57 Blood Pressure 155/96 04/05/19 07:57 O2 Sat by Pulse Oximetry (%) Pertinent Admission Physical Exam Findings: pt arrived in withdrawals Laboratory Tests 03/31/19 03/31/19 03/31/19 14:15 14:15 14:15 WBC 7.2 RBC 3.61 L Hgb 12.6 Hct 37.3 D MCV 103.3 H MCH 34.8 H MCHC 33.7 RDW 15.0 Plt Count 255 D MPV 9.7 D Sodium 135 L Potassium 3.6 Chloride 100 Carbon Dioxide 25 Anion Gap 10 BUN 7.6 Creatinine 0.6 Est GFR (CKD-EPI)AfAm 152.04 Est GFR (CKD-EPI)NonAf 131.18 Random Glucose 107 H Calcium 9.4 Total Bilirubin 1.3 H AST 33 ALT 21 Alkaline Phosphatase 102 Total Protein 8.4 H Albumin 4.4 RPR Titer Nonreactive today pt is aaox3 ambulating no acute distress no s/s of withdrawal sx - Treatment Hospital Course: Detox Protocol Followed, Detoxed Safely, Responded well, Discharged Condition Good, Rehab Referral Accepted Patient has Accepted a Rehab Referral to: pt declined rehab; referral provided - Medication Discharge Medications: Ambulatory Orders Psyllium [Metamucil (Sugar-Free) -] 5.85 gm PO TID 03/31/19 - Diagnosis (1) Alcohol dependence with uncomplicated withdrawal Current Visit: Yes Status: Chronic (2) Depressed affect Current Visit: Yes Status: Acute (3) Nicotine dependence Current Visit: Yes Status: Chronic Qualifiers: Nicotine product type: cigarettes Substance use status: uncomplicated Qualified Code(s): F17.210 - Nicotine dependence, cigarettes, uncomplicated (4) Seizure disorder Current Visit: Yes Status: Acute (5) Insomnia Current Visit: No Status: Acute Qualifiers: Insomnia type: unspecified Qualified Code(s): G47.00 - Insomnia, unspecified (6) Nasal fracture Current Visit: No Status: Acute (7) Hypertension Current Visit: Yes Status: Chronic Qualifiers: Hypertension type: essential hypertension Qualified Code(s): I10 - Essential (primary) hypertension - AMA Did Patient Leave Against Medical Advice: No
== END 2019-04-05 09:31 | disposition home or self-care (01) | DRG 775 ==
LOC: YASAS 10:06 → Y6N 14:02
PROVIDERS: ADMIT Surgery; ATTEND Surgery
PROC: HZ2ZZZZ Detoxification Services for Substance Abuse Treatment (ICD-10-PCS; principal; 2019-03-31)
DX: F10.230 Alcohol dependence with withdrawal, uncomplicated (principal); F12.10 Cannabis abuse, uncomplicated; F17.210 Nicotine dependence, cigarettes, uncomplicated; E80.6 Other disorders of bilirubin metabolism; G40.909 Epilepsy, unspecified, not intractable, without status epilepticus; G47.00 Insomnia, unspecified; Z59.0 Homelessness; R63.8 Other symptoms and signs concerning food and fluid intake
CPT/HCPCS: 36415; 80053; 85027; 86593

== ENCOUNTER 2019-07-25 08:59 | Inpatient (IN) | payer OTHER ==
[2019-07-25 09:25] VITALS: BMI 27.0
--- NOTE | 2019-07-25 09:45 | HP ---
CIWA Score Nausea/Vomitin-No Nausea/No Vomiting Muscle Tremors: 3 Anxiety: 2 Agitation: 3 Paroxysmal Sweats: 4-Forehead w/Sweat Beads Orientation: 0-Oriented Tacttile Disturbances: 3-Moderate Itch/Numb/Burn Auditory Disturbances: 0-None Visual Disturbances: 4-Moderate Hallucinations Headache: 1-Very Mild CIWA-Ar Total Score: 20 - Admission Criteria OASAS Guidelines: Admission for Medically Managed Detox: Requires at least one of the followin. CIWA greater than 12 2. Seizures within the past 24 hours 3. Delirium tremens within the past 24 hours 4. Hallucinations within the past 24 hours 5. Acute intervention needed for co occurring medical disorder 6. Acute intervention needed for co occurring psychiatric disorder 7. Severe withdrawal that cannot be handled at a lower level of care (continued vomiting, continued diarrhea, abnormal vital signs) requiring intravenous medication and/or fluids 8. Admitting History and Physical - Admission Chief Complaint: I want to be admitted to detox." History of Present Illness: 34 YO ETOH USE BEGAN AGE 14 HAS HAD PERIODS OF ABSTINENCE DURING INCARCERATION SP DETOX 1 YEAR. LAST ADMISSION WAS IN 03/31-04/04/2019 AND HE WAS ABSTINENT FOR 1.5 MONTHS BUT THEN RELAPSED. STEADY PATTERN DRINKING 1 L VODKA DAILY. HE HAD A BLACKOUT THE DAY BEFORE. SO LAST DRINK WAS 07/24/19 WAS SEEN AT [facility]. HE IS STILL HOMELESS AND ON THE STREETS. HAS BEEN IN OUTPT WHICH HELPED HE SMOKES 1PPD FOR MANY YEARS OF CIGGARETTES History Source: Patient Limitations to Obtaining History: No Limitations - Past Medical History Cardiovascular: Yes: HTN - Smoking History Smoking history: Current every day smoker Have you smoked in the past 12 months: Yes Aproximately how many cigarettes per day: 10 - Alcohol/Substance Use Hx Alcohol Use: Yes Admission ROS [facility] Allergies/Adverse Reactions: Allergies Allergy/AdvReac Type Severity Reaction Status Date / Time No Known Allergies Allergy Verified 07/25/19 09:21 Exam Limitations: No Limitations - Ebola screening Have you traveled outside of the country in the last 21 days: No Have you had contact with anyone from an Ebola affected area: No Have you been sick,other than usual withdrawal symptoms: No Do you have a fever: No - Review of Systems Constitutional: Chills, Diaphoresis EENT: reports: No Symptoms Reported Respiratory: reports: No Symptoms reported Cardiac: reports: No Symptoms Reported GI: reports: Diarrhea : reports: No Symptoms Reported Musculoskeletal: reports: No Symptoms Reported Integumentary: reports: No Symptoms Reported Neuro: reports: No Symptoms reported Endocrine: reports: No Symptoms Reported Hematology: reports: No Symptoms Reported Psychiatric: reports: Judgement Intact, Mood/Affect Appropiate, Orientated x3 Other Systems: Reviewed and Negative Patient History - Patient Medical History Hx Anemia: No Hx Asthma: No Hx Chronic Obstructive Pulmonary Disease (COPD): No Hx Cancer: No Hx Cardiac Disorders: No Hx Congestive Heart Failure: No Hx Hypertension: Yes Hx Hypercholesterolemia: No Hx Pacemaker: No HX Cerebrovascular Accident: No Hx Seizures: Yes (etoh related seizure 1 week ago) Hx Dementia: No Hx Diabetes: No Hx Gastrointestinal Disorders: No Hx Liver Disease: No Hx Genitourinary Disorders: No Hx Sexually Transmitted Disorders: No Hx Renal Disease (ESRD): No Hx Thyroid Disease: No Hx Human Immunodeficiency Virus (HIV): No Hx Hepatitis C: No Hx Depression: No Hx Suicide Attempt: No Hx Bipolar Disorder: No Hx Schizophrenia: No - Patient Surgical History Past Surgical History: Yes Hx Neurologic Surgery: No Hx Cataract Extraction: No Hx Cardiac Surgery: No Hx Lung Surgery: No Hx Breast Surgery: No Hx Breast Biopsy: No Hx Abdominal Surgery: No Hx Appendectomy: No Hx Cholecystectomy: No Hx Genitourinary Surgery: No Hx Section: No Hx Orthopedic Surgery: Yes (LEFT ANKLE SX 2013 R hip) Anesthesia Reaction: No (unknown) - PPD History Date: 02/07/18 Results: 0MM - Smoking Cessation Smoking history: Current every day smoker Have you smoked in the past 12 months: Yes Aproximately how many cigarettes per day: 10 Cigars Per Day: 0 Hx Chewing Tobacco Use: No Initiated information on smoking cessation: Yes 'Breaking Loose' booklet given: 07/25/19 - Substances abused Alcohol Substance route: Oral Frequency: Daily Amount used: 1 liter of vodka Age of first use: 14 Date of last use: 07/24/19 Marijuana/Hashish Substance route: Smoking Frequency: 1-3 times last 30 days Amount used: 1 blunt Age of first use: 9 Date of last use: 07/18/19 Admission Physical Exam [facility] - Vital Signs Vital Signs: Vital Signs - 24 hr 07/25/19 09:22 Temperature 98.2 F Pulse Rate 79 Respiratory 20 Rate Blood Pressure 184/96 H - Physical General Appearance: Yes: Moderate Distress, Intoxicated, Tremorous, Irritable, Sweating, Anxious HEENTM: Yes: EOMI, Hearing grossly Normal, Normal ENT Inspection, Normocephalic , Normal Voice, LICHA, Pharynx Normal, Tm's normal Respiratory: Yes: Chest Non-Tender, Lungs Clear, Normal Breath Sounds, No Respiratory Distress, No Accessory Muscle Use Breast: Yes: Within Normal Limits, Axillae without masses, No Discharge Cardiology: Yes: S1, S2, Murmur, Tachycardia, Systolic Murmur Abdominal: Yes: Normal Bowel Sounds, Non Tender, Soft, Protuberent Genitourinary: Yes: Within Normal Limits Back: Yes: Normal Inspection Musculoskeletal: Yes: full range of Motion, Gait Steady, Pelvis Stable Extremities: Yes: Normal Capillary Refill, Normal Inspection, Normal Range of Motion, Non-Tender 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: 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: 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 NML intact, Fully Oriented, Alert, Motor Strength 5/5, Normal Mood/Affect Integumentary: Yes: Normal Color, Dry, Warm Lymphatic: Yes: Within Normal Limits - Diagnostic (1) Depressed affect Current Visit: Yes Status: Acute (2) Insomnia Current Visit: Yes Status: Acute Qualifiers: Insomnia type: unspecified Qualified Code(s): G47.00 - Insomnia, unspecified (3) Seizure disorder Current Visit: Yes Status: Acute (4) Alcohol dependence with uncomplicated withdrawal Current Visit: Yes Status: Chronic (5) Hypertension Current Visit: Yes Status: Chronic Qualifiers: Hypertension type: essential hypertension Qualified Code(s): I10 - Essential (primary) hypertension (6) Nicotine dependence Current Visit: Yes Status: Chronic Qualifiers: Nicotine product type: cigarettes Substance use status: uncomplicated Qualified Code(s): F17.210 - Nicotine dependence, cigarettes, uncomplicated Screened but not Admitted - Documentation of Visit Screened but not Admitted: No Breathalyzer - Breathalyzer Breathalyzer: 0 Urine Drug Screen - Test Device Lot number: [id number] Expiration date: 03/09/21 - Control Is test valid?: Yes - Results Drug screen NEGATIVE: No Urine drug screen results: THC-Marijuana, BZO-Benzodiazepines Inpatient Rehab Admission - Rehab Decision to Admit Inpatient rehab admission?: No
[2019-07-25] MEDS ORDERED: ACETAMINOPHEN 325 MG TABLET (FP) PO PRN ×2 (09:52)
[2019-07-25] MEDS ORDERED: hydrOXYzine PAMOATE 25 MG CAPSULE (FP) PO PRN (09:52)
[2019-07-25] MEDS ORDERED: BISMUTH SUBSALICYLATE 262 MG/15 ML BTL PO PRN (09:52)
[2019-07-25] MEDS ORDERED: MAGNESIUM HYDROX 2400MG/30ML ORAL SUSPENSION 30 ML CUP PO PRN (09:52)
[2019-07-25] MEDS ORDERED: MAG HYDROX/AL HYDROX/SIMETH 30 ML UNIT-DOSE CUP PO PRN (09:52)
[2019-07-25] MEDS ORDERED: chlordiazePOXIDE HCL 10 MG CAPSULE PO PRN (09:52)
[2019-07-25] MEDS ORDERED: MAGNESIUM CITRATE 300 ML BOTTLE PO PRN (09:52)
[2019-07-25] MEDS ORDERED: METHOCARBAMOL 500 MG TABLET PO PRN (09:52)
[2019-07-25] MEDS ORDERED: MELATONIN 5 MG TABLETS PO PRN (09:52)
[2019-07-25] MEDS ORDERED: IBUPROFEN 400 MG TABLET (FP) PO PRN (09:52)
[2019-07-25] MEDS ORDERED: MENTHOL/PHENOL 1 EACH UD MM PRN (09:52)
[2019-07-25] MEDS ORDERED: MINERAL OIL/PETROLAT/WATER TOPICAL CREAM 113 GM JAR TP PRN (09:54)
[2019-07-25] MEDS: PRENATAL VITAMINS W/ FOLIC ACID TABLET (FP) PO SCH (10:50)
[2019-07-25] MEDS: NICOTINE 14 MG/24 HOURS TOPICAL PATCH TD SCH (10:51)
[2019-07-25] MEDS ORDERED: cloNIDine HCL 0.1 MG TABLET PO PRN (11:10)
--- NOTE | 2019-07-25 11:13 | PN ---
S Progress Note Note: patient had admission bp of 184/94 upon arrived to unit bp 176/99 received librium 10 mg po additional amlodipin 10 mg po hs with clonidine 0.1 mg po prn
[2019-07-25] MEDS: chlordiazePOXIDE HCL 25 MG CAPSULE PO SCH ×2 (12:27→22:23)
[2019-07-25 12:37] LABS: HEMATOCRIT 31.4 % (35.4-49); HEMOGLOBIN 10.8 GM/dL (11.7-16.9); MCH 34.1 pg (25.7-33.7); MCHC 34.5 g/dl (32.0-35.9); MEAN CELL VOLUME 98.9 fl (80-96); MEAN PLT VOLUME 9.3 fl (7.5-11.1); PLATELET COUNT 158 K/MM3 (134-434); RBC 3.17 M/mm3 (4.00-5.60); RDW 15.1 % (11.9-15.9)
[2019-07-25 12:44] LABS: ALBUMIN 4.2 g/dl (3.4-5.0); BILIRUBIN,TOTAL 1.1 mg/dL (0.2-1); BLOOD UREA NITROGEN 5.2 mg/dL (7-18); CALCIUM 8.9 mg/dL (8.5-10.1); CREATININE 0.8 mg/dL (0.55-1.3); POTASSIUM 3.1 mmol/L (3.5-5.1); TOT PROT 7.9 g/dl (6.4-8.2)
[2019-07-25] MEDS ORDERED: LISINOPRIL 10 MG TABLET (FP) PO ONE (15:26)
[2019-07-25] MEDS ORDERED: amLODIPine BESYLATE 10 MG TABLET (FP) PO SCH (22:00)
[2019-07-25] MEDS: THIAMINE HCL 100 MG TABLET (FP) PO SCH (22:26)
[2019-07-26] MEDS: chlordiazePOXIDE HCL 25 MG CAPSULE PO SCH ×3 (05:30→22:13)
--- NOTE | 2019-07-26 09:49 | EKG ---
Test Reason : Blood Pressure : / mmHG Vent. Rate : 074 BPM Atrial Rate : 074 BPM P-R Int : 186 ms QRS Dur : 082 ms QT Int : 384 ms P-R-T Axes : 046 033 049 degrees QTc Int : 426 ms NORMAL SINUS RHYTHM WITH SINUS ARRHYTHMIA SEPTAL INFARCT (CITED ON OR BEFORE 05-FEB-2018) ABNORMAL ECG WHEN COMPARED WITH ECG OF 27-APR-2018 02:46, NO SIGNIFICANT CHANGE WAS FOUND Confirmed by MD Austin, Nato ([id number]) on 07/26/2019 9:49:29 AM Referred By: ALAINA Confirmed By:Nato Avila MD
[2019-07-26] MEDS: NICOTINE 14 MG/24 HOURS TOPICAL PATCH TD SCH (10:43)
[2019-07-26] MEDS: LISINOPRIL 10 MG TABLET (FP) PO SCH (10:43)
[2019-07-26] MEDS: PRENATAL VITAMINS W/ FOLIC ACID TABLET (FP) PO SCH (10:43)
--- NOTE | 2019-07-26 11:11 | PN ---
S CIWA - CIWA Score Nausea/Vomitin-Mild Nausea/No Vomiting Muscle Tremors: 2 Anxiety: 3 Agitation: 3 Paroxysmal Sweats: 2 Orientation: 1-Uncertain about Date (date of week and day of month) Tacttile Disturbances: 1-Very Mild Itch/Numbness Auditory Disturbances: 0-None Visual Disturbances: 0-None Headache: 2-Mild CIWA-Ar Total Score: 15 [facility] Progress Note (SOAP) Subjective: 34 years old male admitted on 07/25/19 for alcohol withdrawal sx management treating with librium detox regimen c/o headache tylenal 650mg po x 1 c/o loose stool imodium 4 mg po x 1 Objective: 07/26/19 11:15 Vital Signs Temperature 98.1 F 07/26/19 09:01 Pulse Rate 82 07/26/19 09:01 Respiratory Rate 18 07/26/19 09:01 Blood Pressure 129/78 07/26/19 09:01 O2 Sat by Pulse Oximetry (%) Laboratory Last Values WBC 5.0 K/mm3 (4.0-10.0) 07/25/19 10:00 RBC 3.17 M/mm3 (4.00-5.60) L 07/25/19 10:00 Hgb 10.8 GM/dL (11.7-16.9) L 07/25/19 10:00 Hct 31.4 % (35.4-49) L D 07/25/19 10:00 MCV 98.9 fl (80-96) H 07/25/19 10:00 MCH 34.1 pg (25.7-33.7) H 07/25/19 10:00 MCHC 34.5 g/dl (32.0-35.9) 07/25/19 10:00 RDW 15.1 % (11.9-15.9) 07/25/19 10:00 Plt Count 158 K/MM3 (134-434) D 07/25/19 10:00 MPV 9.3 fl (7.5-11.1) 07/25/19 10:00 Sodium 134 mmol/L (136-145) L 07/25/19 10:00 Potassium 3.1 mmol/L (3.5-5.1) L 07/25/19 10:00 Chloride 97 mmol/L (98-107) L 07/25/19 10:00 Carbon Dioxide 27 mmol/L (21-32) 07/25/19 10:00 Anion Gap 10 MMOL/L (8-16) 07/25/19 10:00 BUN 5.2 mg/dL (7-18) L 07/25/19 10:00 Creatinine 0.8 mg/dL (0.55-1.3) 07/25/19 10:00 Est GFR (CKD-EPI)AfAm 134.14 07/25/19 10:00 Est GFR (CKD-EPI)NonAf 115.74 07/25/19 10:00 Random Glucose 118 mg/dL (74-106) H 07/25/19 10:00 Calcium 8.9 mg/dL (8.5-10.1) 07/25/19 10:00 Total Bilirubin 1.1 mg/dL (0.2-1) H 07/25/19 10:00 AST 99 U/L (15-37) H 07/25/19 10:00 ALT 44 U/L (13-61) 07/25/19 10:00 Alkaline Phosphatase 95 U/L (45-117) 07/25/19 10:00 Total Protein 7.9 g/dl (6.4-8.2) 07/25/19 10:00 Albumin 4.2 g/dl (3.4-5.0) 07/25/19 10:00 RPR Titer Nonreactive (NONREACTIVE) 07/25/19 10:00 lab noted low K+ Assessment: 07/26/19 11:17 alcohol withdrawal Plan: librium regimen
[2019-07-26] MEDS ORDERED: ACETAMINOPHEN 325 MG TABLET (FP) PO ONE (11:30)
[2019-07-26] MEDS ORDERED: LOPERAMIDE HCL 2 MG CAPSULE PO ONE (11:30)
--- NOTE | 2019-07-26 11:30 | EKG ---
Test Reason : Blood Pressure : / mmHG Vent. Rate : 078 BPM Atrial Rate : 078 BPM P-R Int : 206 ms QRS Dur : 086 ms QT Int : 384 ms P-R-T Axes : 059 030 025 degrees QTc Int : 437 ms NORMAL SINUS RHYTHM SEPTAL INFARCT (CITED ON OR BEFORE 05-FEB-2018) ABNORMAL ECG WHEN COMPARED WITH ECG OF 25-JUL-2019 11:11, NO SIGNIFICANT CHANGE WAS FOUND Confirmed by Ankit Gardner MD ([id number]) on 07/26/2019 11:30:07 AM Referred By: Confirmed By:Ankit Gardner MD
[2019-07-26] MEDS ORDERED: POTASSIUM CHLORIDE ORAL LIQUID 20 MEQ/15 ML PO ONE ×2 (12:00→22:00)
[2019-07-26] MEDS: THIAMINE HCL 100 MG TABLET (FP) PO SCH (22:13)
[2019-07-26] MEDS: amLODIPine BESYLATE 5 MG TABLET (FP) PO SCH (22:13)
[2019-07-27] MEDS: chlordiazePOXIDE 5 MG CAPSULE PO SCH ×3 (05:22→22:15)
[2019-07-27] MEDS: LISINOPRIL 10 MG TABLET (FP) PO SCH (10:11)
[2019-07-27] MEDS: NICOTINE 14 MG/24 HOURS TOPICAL PATCH TD SCH (10:11)
[2019-07-27] MEDS: PRENATAL VITAMINS W/ FOLIC ACID TABLET (FP) PO SCH (10:11)
--- NOTE | 2019-07-27 11:31 | PN ---
[facility] CIWA - CIWA Score Nausea/Vomitin-Mild Nausea/No Vomiting Muscle Tremors: 3 Anxiety: 2 Agitation: 1-Slight > Activity Paroxysmal Sweats: 2 Orientation: 0-Oriented Tacttile Disturbances: 0-None Auditory Disturbances: 0-None Visual Disturbances: 0-None Headache: 1-Very Mild CIWA-Ar Total Score: 10 S Progress Note (SOAP) Subjective: 34 years old male admitted on 07/25/19 for alcohol withdrawal sx management treating with librium detox regimen ate breakfast tolerate food and fluid well limited conversation with staff encourage the patient to attend groups and meetings Objective: 07/27/19 11:32 Vital Signs Temperature 96.9 F L 07/27/19 09:15 Pulse Rate 73 07/27/19 09:15 Respiratory Rate 18 07/27/19 09:15 Blood Pressure 134/78 07/27/19 09:15 O2 Sat by Pulse Oximetry (%) Laboratory Last Values WBC 5.0 K/mm3 (4.0-10.0) 07/25/19 10:00 RBC 3.17 M/mm3 (4.00-5.60) L 07/25/19 10:00 Hgb 10.8 GM/dL (11.7-16.9) L 07/25/19 10:00 Hct 31.4 % (35.4-49) L D 07/25/19 10:00 MCV 98.9 fl (80-96) H 07/25/19 10:00 MCH 34.1 pg (25.7-33.7) H 07/25/19 10:00 MCHC 34.5 g/dl (32.0-35.9) 07/25/19 10:00 RDW 15.1 % (11.9-15.9) 07/25/19 10:00 Plt Count 158 K/MM3 (134-434) D 07/25/19 10:00 MPV 9.3 fl (7.5-11.1) 07/25/19 10:00 Sodium 134 mmol/L (136-145) L 07/25/19 10:00 Potassium 3.9 mmol/L (3.5-5.1) 07/27/19 07:50 Chloride 97 mmol/L (98-107) L 07/25/19 10:00 Carbon Dioxide 27 mmol/L (21-32) 07/25/19 10:00 Anion Gap 10 MMOL/L (8-16) 07/25/19 10:00 BUN 5.2 mg/dL (7-18) L 07/25/19 10:00 Creatinine 0.8 mg/dL (0.55-1.3) 07/25/19 10:00 Est GFR (CKD-EPI)AfAm 134.14 07/25/19 10:00 Est GFR (CKD-EPI)NonAf 115.74 07/25/19 10:00 Random Glucose 118 mg/dL (74-106) H 07/25/19 10:00 Calcium 8.9 mg/dL (8.5-10.1) 07/25/19 10:00 Total Bilirubin 1.1 mg/dL (0.2-1) H 07/25/19 10:00 AST 99 U/L (15-37) H 07/25/19 10:00 ALT 44 U/L (13-61) 07/25/19 10:00 Alkaline Phosphatase 95 U/L (45-117) 07/25/19 10:00 Total Protein 7.9 g/dl (6.4-8.2) 07/25/19 10:00 Albumin 4.2 g/dl (3.4-5.0) 07/25/19 10:00 RPR Titer Nonreactive (NONREACTIVE) 07/25/19 10:00 lab noted Assessment: 07/27/19 11:34 alcohol withdrawal Plan: librium regimen
[2019-07-27] MEDS: THIAMINE HCL 100 MG TABLET (FP) PO SCH (22:15)
[2019-07-27] MEDS: amLODIPine BESYLATE 5 MG TABLET (FP) PO SCH (22:15)
[2019-07-28] MEDS ORDERED: chlordiazePOXIDE HCL 10 MG CAPSULE PO PRN
[2019-07-28] MEDS: chlordiazePOXIDE HCL 10 MG CAPSULE PO SCH ×3 (06:20→22:00)
--- NOTE | 2019-07-28 10:59 | PN ---
S CIWA - CIWA Score Nausea/Vomitin-No Nausea/No Vomiting Muscle Tremors: 2 Anxiety: 2 Agitation: 1-Slight > Activity Paroxysmal Sweats: No Perspiration Orientation: 0-Oriented Tacttile Disturbances: 0-None Auditory Disturbances: 0-None Visual Disturbances: 0-None Headache: 0-None Present CIWA-Ar Total Score: 5 B[facility] Progress Note (SOAP) Subjective: 34 years old male admitted on 07/25/19 for alcohol withdrawal sx management treating with librium detox regimen ate breakfast feeling better today slept through the night less tremor Objective: 07/28/19 10:58 Vital Signs Temperature 97 F L 07/28/19 09:11 Pulse Rate 72 07/28/19 09:11 Respiratory Rate 18 07/28/19 09:11 Blood Pressure 125/74 07/28/19 09:11 O2 Sat by Pulse Oximetry (%) Laboratory Last Values WBC 5.0 K/mm3 (4.0-10.0) 07/25/19 10:00 RBC 3.17 M/mm3 (4.00-5.60) L 07/25/19 10:00 Hgb 10.8 GM/dL (11.7-16.9) L 07/25/19 10:00 Hct 31.4 % (35.4-49) L D 07/25/19 10:00 MCV 98.9 fl (80-96) H 07/25/19 10:00 MCH 34.1 pg (25.7-33.7) H 07/25/19 10:00 MCHC 34.5 g/dl (32.0-35.9) 07/25/19 10:00 RDW 15.1 % (11.9-15.9) 07/25/19 10:00 Plt Count 158 K/MM3 (134-434) D 07/25/19 10:00 MPV 9.3 fl (7.5-11.1) 07/25/19 10:00 Sodium 134 mmol/L (136-145) L 07/25/19 10:00 Potassium 3.9 mmol/L (3.5-5.1) 07/27/19 07:50 Chloride 97 mmol/L (98-107) L 07/25/19 10:00 Carbon Dioxide 27 mmol/L (21-32) 07/25/19 10:00 Anion Gap 10 MMOL/L (8-16) 07/25/19 10:00 BUN 5.2 mg/dL (7-18) L 07/25/19 10:00 Creatinine 0.8 mg/dL (0.55-1.3) 07/25/19 10:00 Est GFR (CKD-EPI)AfAm 134.14 07/25/19 10:00 Est GFR (CKD-EPI)NonAf 115.74 07/25/19 10:00 Random Glucose 118 mg/dL (74-106) H 07/25/19 10:00 Calcium 8.9 mg/dL (8.5-10.1) 07/25/19 10:00 Total Bilirubin 1.1 mg/dL (0.2-1) H 07/25/19 10:00 AST 99 U/L (15-37) H 07/25/19 10:00 ALT 44 U/L (13-61) 07/25/19 10:00 Alkaline Phosphatase 95 U/L (45-117) 07/25/19 10:00 Total Protein 7.9 g/dl (6.4-8.2) 07/25/19 10:00 Albumin 4.2 g/dl (3.4-5.0) 07/25/19 10:00 RPR Titer Nonreactive (NONREACTIVE) 07/25/19 10:00 lab noted Assessment: 07/28/19 10:58 alcohol withdrawal Plan: librium regimen
[2019-07-28] MEDS: NICOTINE 14 MG/24 HOURS TOPICAL PATCH TD SCH (11:20)
[2019-07-28] MEDS: PRENATAL VITAMINS W/ FOLIC ACID TABLET (FP) PO SCH (11:20)
[2019-07-28] MEDS: LISINOPRIL 10 MG TABLET (FP) PO SCH (11:20)
[2019-07-28] MEDS: THIAMINE HCL 100 MG TABLET (FP) PO SCH (22:43)
[2019-07-28] MEDS: amLODIPine BESYLATE 5 MG TABLET (FP) PO SCH (22:43)
[2019-07-29] MEDS ORDERED: chlordiazePOXIDE HCL 10 MG CAPSULE PO ONE (05:00)
[2019-07-29 09:05] VITALS: BP 98/60; PULSE 59; TEMP 96.6
[2019-07-29] MEDS: NICOTINE 14 MG/24 HOURS TOPICAL PATCH TD SCH (09:15)
[2019-07-29] MEDS: PRENATAL VITAMINS W/ FOLIC ACID TABLET (FP) PO SCH (09:16)
[2019-07-29] MEDS: LISINOPRIL 10 MG TABLET (FP) PO SCH (09:16)
--- NOTE | 2019-07-29 13:36 | DS ---
[facility] Detox Discharge Summary Admission Date: 07/25/19 Discharge Date: 07/29/19 - History Present History: Alcohol Dependence Pertinent Past History: Pt admitted for AUD- completed detox. Pt left before being seen. - Physical Exam Results Vital Signs: Vital Signs Temperature 96.6 F L 07/29/19 09:05 Pulse Rate 59 L 07/29/19 09:05 Respiratory Rate 18 07/29/19 09:05 Blood Pressure 98/60 07/29/19 09:05 O2 Sat by Pulse Oximetry (%) - Treatment Hospital Course: Detox Protocol Followed, Detoxed Safely, Responded well, Discharged Condition Good - Medication Discharge Medications: Ambulatory Orders NK [No Known Home Medication] 07/25/19 - AMA Did Patient Leave Against Medical Advice: No
== END 2019-07-29 09:05 | disposition home or self-care (01) | DRG 775 ==
LOC: YASAS 08:59 → Y3N 10:07
PROVIDERS: ADMIT Allergy & Immunology; ATTEND Allergy & Immunology
PROC: HZ2ZZZZ Detoxification Services for Substance Abuse Treatment (ICD-10-PCS; principal; 2019-07-25)
DX: F10.230 Alcohol dependence with withdrawal, uncomplicated (principal); F12.20 Cannabis dependence, uncomplicated; F17.210 Nicotine dependence, cigarettes, uncomplicated; F32.9 Major depressive disorder, single episode, unspecified; I10 Essential (primary) hypertension; G47.00 Insomnia, unspecified; R00.0 Tachycardia, unspecified; R01.1 Cardiac murmur, unspecified; Z86.69 Personal history of other diseases of the nervous system and sense organs; Z59.0 Homelessness
CPT/HCPCS: 36415; 80053; 84132; 85027; 86593; 93005; 93010; J0735

== ENCOUNTER 2023-12-15 07:59 | Inpatient (IN) | payer OTHER ==
[2023-12-15 08:59] VITALS: BMI 27.5
[2023-12-15] MEDS ORDERED: hydrOXYzine PAMOATE 25 MG CAPSULE (FP) PO PRN (09:36)
[2023-12-15] MEDS ORDERED: guaiFENesin 600 MG TABLET.ER (FP) PO PRN (09:36)
[2023-12-15] MEDS ORDERED: BENZOCAINE/MENTHOL (CHLORASEPTIC ) LOZENGE MM PRN (09:36)
[2023-12-15] MEDS ORDERED: NALOXONE HCL 0.4 MG/ML VIAL IM PRN (09:36)
[2023-12-15] MEDS ORDERED: BENZONATATE 200 MG CAPSULE PO PRN (09:36)
[2023-12-15] MEDS ORDERED: POLYETHYLENE GLYCOL (HEALTHYLAX) 3350 17 GM PACKET PO PRN (09:36)
[2023-12-15] MEDS ORDERED: MAG HYDROX/AL HYDROX/SIMETH 30 ML UNIT-DOSE CUP PO PRN (09:36)
[2023-12-15] MEDS ORDERED: chlordiazePOXIDE HCL 25 MG CAPSULE PO PRN (09:36)
[2023-12-15] MEDS ORDERED: NALOXONE HCL (KLOXXADO) 8 MG SPRAY NS PRN (09:36)
[2023-12-15] MEDS ORDERED: ACETAMINOPHEN 325 MG TABLET (FP) PO PRN (09:36)
[2023-12-15] MEDS ORDERED: DICYCLOMINE HCL 10 MG CAPSULE PO PRN (09:36)
[2023-12-15] MEDS ORDERED: IBUPROFEN 400 MG TABLET (FP) PO PRN (09:36)
[2023-12-15] MEDS ORDERED: IBUPROFEN 600 MG TABLET (FP) PO PRN (09:36)
[2023-12-15] MEDS ORDERED: LOPERAMIDE HCL 2 MG CAPSULE PO PRN (09:36)
[2023-12-15] MEDS ORDERED: MAGNESIUM HYDROX 2400MG/30ML ORAL SUSPENSION 30 ML CUP PO PRN (09:36)
[2023-12-15] MEDS ORDERED: chlordiazePOXIDE HCL 25 MG CAPSULE ONE (10:16)
[2023-12-15] MEDS ORDERED: NICOTINE 14 MG/24 HOURS TOPICAL PATCH TD ONE (10:16)
[2023-12-15] MEDS ORDERED: PRENATAL VITAMINS W/ FOLIC ACID TABLET (FP) PO ONE (10:16)
[2023-12-15] MEDS: NICOTINE 14 MG/24 HOURS TOPICAL PATCH TD SCH (10:23)
[2023-12-15] MEDS: PRENATAL VITAMINS W/ FOLIC ACID TABLET (FP) PO SCH (10:23)
[2023-12-15] MEDS: chlordiazePOXIDE HCL 25 MG CAPSULE PO SCH (10:24)
[2023-12-15] MEDS: BACITRACIN 0.9 GM PACKET TP SCH (11:20)
[2023-12-15] MEDS: BISMUTH SUBSALICYLATE 524 MG/30 ML PO PRN (17:41)
[2023-12-15] MEDS: MELATONIN 5 MG TABLETS PO SCH (22:29)
[2023-12-15] MEDS: THIAMINE 100 MG TABLET PO SCH (22:29)
[2023-12-15] MEDS: ONDANSETRON *ODT* 4 MG TABLET SL PRN (22:29)
[2023-12-15] MEDS: METHOCARBAMOL 500 MG TABLET PO PRN (22:29)
[2023-12-16 09:51] LABS: HEMATOCRIT 29.7 % (35.4-49); HEMOGLOBIN 9.7 GM/dL (11.7-16.9); MCH 26.5 pg (25.7-33.7); MCHC 32.7 g/dl (32.0-35.9); MEAN CELL VOLUME 81.1 fl (80-96); MEAN PLT VOLUME 8.4 fl (7.5-11.1); PLATELET COUNT 338 10^3/uL (134-434); RBC 3.66 M/mm3 (4.00-5.60); RDW 24.7 % (11.9-15.9); WHITE BLOOD COUNT 8.9 K/mm3 (4.0-10.0)
[2023-12-16 09:52] LABS: CHLORIDE 98 mmol/L (98-107); POTASSIUM 3.6 mmol/L (3.5-5.1); SODIUM 134 mmol/L (136-145)
[2023-12-16 09:55] LABS: CALCIUM 9.2 mg/dL (8.5-10.1)
[2023-12-16 09:56] LABS: ALBUMIN 3.3 g/dl (3.4-5.0); ANION GAP 5 mmol/L (4-13); BLOOD UREA NITROGEN 5.4 mg/dL (7-18); CO2 31 mmol/L (21-32); GLUCOSE,RANDOM 96 mg/dL (74-106)
[2023-12-16 09:59] LABS: CREATININE 0.6 mg/dL (0.55-1.3); SGOT/AST 25 U/L (15-37); SGPT/ALT 21 U/L (13-61)
[2023-12-16 10:01] LABS: BILIRUBIN,TOTAL 0.7 mg/dL (0.2-1); TOT PROT 7.1 g/dl (6.4-8.2)
[2023-12-16 10:02] LABS: ALK PHOS 136 U/L (45-117)
[2023-12-16] MEDS: amLODIPine BESYLATE 5 MG TABLET (FP) PO SCH (10:12)
[2023-12-16] MEDS: cloNIDine HCL 0.1 MG TABLET PO PRN (22:13)
[2023-12-16] MEDS: TRIMETHOBENZAMIDE HCL 200MG/2ML INJ IM ONE (23:33)
[2023-12-17] MEDS: chlordiazePOXIDE HCL 25 MG CAPSULE PO SCH (05:03)
[2023-12-17] MEDS: LACTULOSE 20 GM/30 ML UDC (FOR ORAL USE ONLY) PO SCH (13:12)
[2023-12-18] MEDS ORDERED: chlordiazePOXIDE HCL 10 MG CAPSULE PO PRN
[2023-12-18] MEDS: chlordiazePOXIDE HCL 10 MG CAPSULE PO SCH ×2 (06:00→18:18)
[2023-12-18] MEDS: amLODIPine BESYLATE 10 MG TABLET (FP) PO SCH (09:58)
[2023-12-18] MEDS: TRIMETHOBENZAMIDE HCL 200MG/2ML INJ IM PRN (16:04)
[2023-12-19] MEDS: chlordiazePOXIDE HCL 10 MG CAPSULE PO SCH (06:19)
[2023-12-19 15:05] LABS: IRON SERUM 28 ug/dL (50-175); TOTAL IRON BINDING CAPACITY 418 ug/dL (250-450)
[2023-12-19 21:47] VITALS: TEMP 98.2
[2023-12-20] MEDS: chlordiazePOXIDE HCL 10 MG CAPSULE PO ONE (05:56)
[2023-12-20 06:58] VITALS: PULSE 85; RESP 16
[2023-12-20 09:35] VITALS: BP 140/77
== END 2023-12-20 10:57 | disposition home or self-care (01) | DRG 775 ==
LOC: YASAS 07:59 → Y6N 10:26
PROVIDERS: ADMIT Allergy & Immunology; ATTEND Surgery
PROC: HZ2ZZZZ Detoxification Services for Substance Abuse Treatment (ICD-10-PCS; principal; 2023-12-15)
DX: F10.230 Alcohol dependence with withdrawal, uncomplicated (principal); F12.10 Cannabis abuse, uncomplicated; I10 Essential (primary) hypertension; E72.20 Disorder of urea cycle metabolism, unspecified; G40.909 Epilepsy, unspecified, not intractable, without status epilepticus
CPT/HCPCS: 36415; 80053; 80305; 80307; 82140; 82607; 82728; 82747; 83540; 83550; 85014; 85027; 86780; 93005; 93010; Q0162

== ENCOUNTER 2024-07-01 03:28 | Inpatient (IN) | payer OTHER ==
[2024-07-01 03:52] VITALS: BMI 28.3
[2024-07-01] MEDS ORDERED: hydrOXYzine PAMOATE 25 MG CAPSULE (FP) PO PRN (05:21)
[2024-07-01] MEDS ORDERED: BENZOCAINE/MENTHOL (CHLORASEPTIC ) LOZENGE MM PRN (05:21)
[2024-07-01] MEDS ORDERED: IBUPROFEN 400 MG TABLET (FP) PO PRN (05:21)
[2024-07-01] MEDS ORDERED: MAGNESIUM HYDROX 2400MG/30ML ORAL SUSPENSION 30 ML CUP PO PRN (05:21)
[2024-07-01] MEDS ORDERED: NALOXONE (NARCAN) HCL 4 MG/0.1 ML SPRAY NS PRN (05:21)
[2024-07-01] MEDS ORDERED: METHOCARBAMOL 500 MG TABLET PO PRN (05:21)
[2024-07-01] MEDS ORDERED: LOPERAMIDE HCL 2 MG CAPSULE PO PRN (05:21)
[2024-07-01] MEDS ORDERED: BISMUTH SUBSALICYLATE 524 MG/30 ML PO PRN (05:21)
[2024-07-01] MEDS ORDERED: POLYETHYLENE GLYCOL (HEALTHYLAX) 3350 17 GM PACKET PO PRN (05:21)
[2024-07-01] MEDS ORDERED: MAG HYDROX/AL HYDROX/SIMETH 30 ML UNIT-DOSE CUP PO PRN (05:21)
[2024-07-01] MEDS ORDERED: NICOTINE POLACRILEX 2 MG GUM BUC PRN (05:21)
[2024-07-01] MEDS ORDERED: BENZONATATE 200 MG CAPSULE PO PRN (05:21)
[2024-07-01] MEDS ORDERED: guaiFENesin 600 MG TABLET.ER (FP) PO PRN (05:21)
[2024-07-01] MEDS ORDERED: DICYCLOMINE HCL 10 MG CAPSULE PO PRN (05:21)
[2024-07-01] MEDS: CLINDAMYCIN HCL 150 MG CAPSULE (FP) PO SCH ×3 (07:41→22:36)
[2024-07-01] MEDS: PRENATAL VITAMINS W/ FOLIC ACID TABLET (FP) PO SCH (10:16)
[2024-07-01] MEDS: NICOTINE 14 MG/24 HOURS TOPICAL PATCH TD SCH (10:16)
[2024-07-01] MEDS: chlordiazePOXIDE HCL 25 MG CAPSULE PO SCH (10:16)
[2024-07-01] MEDS: amLODIPine BESYLATE 10 MG TABLET (FP) PO SCH (10:16)
[2024-07-01] MEDS: ONDANSETRON *ODT* 4 MG TABLET SL PRN (10:27)
[2024-07-01] MEDS: cloNIDine HCL 0.1 MG TABLET PO ONE (13:37)
[2024-07-01] MEDS: chlordiazePOXIDE HCL 25 MG CAPSULE PO PRN (13:37)
[2024-07-01] MEDS: MELATONIN 5 MG TABLETS PO SCH (22:36)
[2024-07-01] MEDS: THIAMINE 100 MG TABLET PO SCH (22:37)
[2024-07-01] MEDS: MICONAZOLE NITRATE 28 GM TUBE TP SCH (22:40)
[2024-07-03] MEDS: chlordiazePOXIDE HCL 25 MG CAPSULE PO SCH (05:35)
[2024-07-03] MEDS: ACETAMINOPHEN 325 MG TABLET (FP) PO PRN (05:36)
[2024-07-04] MEDS ORDERED: chlordiazePOXIDE HCL 10 MG CAPSULE PO PRN
[2024-07-04] MEDS: chlordiazePOXIDE HCL 10 MG CAPSULE PO SCH (05:37)
[2024-07-04] MEDS: IBUPROFEN 600 MG TABLET (FP) PO PRN (17:22)
[2024-07-05] MEDS: chlordiazePOXIDE HCL 10 MG CAPSULE PO SCH (05:51)
[2024-07-05] MEDS: NALOXONE (NYS OPIOID OVERDOSE PROGRAM) 4 MG/0.1 ML SPRAY NS SCH (13:33)
[2024-07-06] MEDS: chlordiazePOXIDE HCL 10 MG CAPSULE PO ONE (05:15)
[2024-07-06 09:32] VITALS: BP 146/90; PULSE 110; RESP 18; TEMP 97.7
== END 2024-07-06 11:05 | disposition home or self-care (01) | DRG 775 ==
LOC: YASAS 03:28 → Y6N 06:45
PROVIDERS: ADMIT Allergy & Immunology; ATTEND Surgery
PROC: HZ2ZZZZ Detoxification Services for Substance Abuse Treatment (ICD-10-PCS; principal; 2024-07-01)
DX: F10.230 Alcohol dependence with withdrawal, uncomplicated (principal); F12.20 Cannabis dependence, uncomplicated; F17.210 Nicotine dependence, cigarettes, uncomplicated; I10 Essential (primary) hypertension; L03.116 Cellulitis of left lower limb; R60.0 Localized edema; Z99.89 Dependence on other enabling machines and devices; Z59.01 Sheltered homelessness
CPT/HCPCS: 36415; 80305; 80307; 93005; 93010; 93970-TC; Q0162